=== PATIENT | male | born 1980 | race Caucasian/White ===

== ENCOUNTER 2016-12-25 12:03 | Emergency (ER) | payer OTHER ==
[2016-12-25 12:47] LABS: % IMMATURE GRANULYOCYTES 0.4 % (0.0-1.1); ABSOLUTE IMMATURE GRANULOCYTES 0.03 10^3/uL (0.00-0.10); ADD DIFF? NO; ADD MORPH? NO; ADD SCAN? NO; ATYPICAL LYMPHOCYTE FLAG 10 (0-99); FRAGMENT RBC FLAG 0 (0-99); HEMOGLOBIN 16.5 g/dL (13.7-17.5); LEFT SHIFT FLG 0 (0-99); LIPEMIA HEMOLYSIS FLAG 90 (0-99); MEAN CELL HEMOGLOBIN 31.3 pg (27.9-34.1); MEAN CELL HEMOGLOBIN CONCENTR. 34.4 g/dL (32.4-36.7); MEAN CELL VOLUME 91.1 fL (81.5-99.8); MEAN PLATELET VOLUME 9.6 fL (8.7-11.7); PLATELET CLUMPS FLAG 0 (0-99); PLATELET COUNT 352 10^3/uL (150-400); RED BLOOD CELL COUNT 5.27 10^6/uL (4.40-6.38); RED CELL DISTRIBUTION WIDTH 12.7 % (11.5-15.2)
[2016-12-25 13:21] LABS: ANION GAP 21 mEq/L (8-16); CALCIUM 10.8 mg/dL (8.5-10.4); CARBON DIOXIDE 19 mEq/l (22-31); CHLORIDE 106 mEq/L (97-110); GLOMERULAR FILTRATION RATE > 60; GLUCOSE 87 mg/dL (70-100); POTASSIUM 3.2 mEq/L (3.5-5.2); SODIUM 146 mEq/L (134-144)
--- NOTE | 2016-12-25 13:57 | EDPHY ---
H & P Stated Complaint: episode of hypoglycemia HPI/ROS: Chief complaint: Hypoglycemia History of present illness: This is a 28-year-old male with insulin-dependent diabetes who presents to the emergency department for low blood sugars. Patient was monitoring his blood sugar on his smart phone and it showed his sugars dropped into the 30s. He states he took his long-acting insulin as directed this morning and has maintained a normal morning routine of 2 soft drinks, so he is surprised his sugars dropped. He states he was feeling somewhat unwell without more specific complaints. On my evaluation he states he feels well without complaint. Review of systems: 10 point review of systems was obtained and other than described above was negative - Personal History Current Tetanus/Diphtheria Vaccine: Unsure Current Tetanus Diphtheria and Acellular Pertussis (TDAP): Unsure - Medical/Surgical History Hx Asthma: No Hx Chronic Respiratory Disease: No Hx Diabetes: No Hx Cardiac Disease: No Hx Renal Disease: No Hx Cirrhosis: No Hx Alcoholism: No Hx HIV/AIDS: No Hx Splenectomy or Spleen Trauma: No Other PMH: Dm TYPE 1 - Social History Smoking Status: Never smoked - Physical Exam Exam: General Appearance: Alert, nontoxic. Eyes: Pupils equal and round no injection. Respiratory: Chest is non tender, lungs are clear to auscultation. Cardiac: regular rate and rhythm Gastrointestinal: Abdomen is soft and non tender, no masses, bowel sounds normal. Musculoskeletal: Neck is supple and non tender. Extremities have full range of motion and are non tender. Skin: No rashes or lesions. Neurological: Alert and oriented x4. Cranial nerves 2-12 grossly intact. Strength and sensation intact and symmetrical. Constitutional: Initial Vital Signs Temperature (C) 36.6 C 12/25/16 12:06 Heart Rate 102 H 12/25/16 12:06 Respiratory Rate 16 12/25/16 12:06 Blood Pressure 169/110 H 12/25/16 12:06 O2 Sat (%) 95 12/25/16 12:06 O2 Delivery Mode Room Air Allergies/Adverse Reactions: No Known Allergies Allergy (Unverified 06/18/09 15:14) Home Medications: Medication Instructions Recorded Lantus 06/18/09 novoLOG 06/18/09 Medical Decision Making ED Course/Re-evaluation: Patient is discussed with my secondary supervising physician Dr. Siva Dumont. Patient presents to the emergency department for an episode of low blood sugar this morning. He was using a smart phone application for monitoring. It sounds like he had minimal symptoms with it. On my evaluation he is nontoxic. Vital signs are stable. He has no symptoms. His blood sugars are within normal limits. He has eaten here in the emergency room. He is observed without any symptoms. He will be discharged, he has a friend with him. He is asked to closely monitor his sugars and follow up with his primary care doctor for recheck. Return precautions are given. Patient voiced understanding and agreement with plan. Differential Diagnosis: Included but not limited to malfunction of his device, taking insulin without proper food intake, over insulin administration - Data Points Laboratory Results: Laboratory Results 12/25/16 12:20 12/25/16 12:20 12/25/16 12/25/16 12:20 12:20 WBC 7.75 10^3/uL 10^3/uL (3.80-9.50) RBC 5.27 10^6/uL 10^6/uL (4.40-6.38) Hgb 16.5 g/dL g/dL (13.7-17.5) Hct 48.0 % % (40.0-51.0) MCV 91.1 fL fL (81.5-99.8) MCH 31.3 pg pg (27.9-34.1) MCHC 34.4 g/dL g/dL (32.4-36.7) RDW 12.7 % % (11.5-15.2) Plt Count 352 10^3/uL 10^3/uL (150-400) MPV 9.6 fL fL (8.7-11.7) Neut % (Auto) 30.7 % L % (39.3-74.2) Lymph % (Auto) 57.5 % H % (15.0-45.0) [place] % (Auto) 8.9 % % (4.5-13.0) Eos % (Auto) 1.7 % % (0.6-7.6) Baso % (Auto) 0.8 % % (0.3-1.7) Nucleat RBC Rel Count 0.0 % % (0.0-0.2) Absolute Neuts (auto) 2.38 10^3/uL 10^3/uL (1.70-6.50) Absolute Lymphs (auto) 4.46 10^3/uL H 10^3/uL (1.00-3.00) Absolute Monos (auto) 0.69 10^3/uL 10^3/uL (0.30-0.80) Absolute Eos (auto) 0.13 10^3/uL 10^3/uL (0.03-0.40) Absolute Basos (auto) 0.06 10^3/uL 10^3/uL (0.02-0.10) Absolute Nucleated RBC 0.00 10^3/uL 10^3/uL (0-0.01) Immature Gran % 0.4 % % (0.0-1.1) Immature Gran # 0.03 10^3/uL 10^3/uL (0.00-0.10) Sodium 146 mEq/L H mEq/L (134-144) Potassium 3.2 mEq/L L mEq/L (3.5-5.2) Chloride 106 mEq/L mEq/L (97-110) Carbon Dioxide 19 mEq/l L mEq/l (22-31) Anion Gap 21 mEq/L H mEq/L (8-16) BUN 9 mg/dL mg/dL (7-23) Creatinine 1.0 mg/dL mg/dL (0.7-1.3) Estimated GFR > 60 Glucose 87 mg/dL mg/dL (70-100) Calcium 10.8 mg/dL H mg/dL (8.5-10.4) Phosphorus 2.7 mg/dL mg/dL (2.5-4.5) Departure - Departure Disposition: Home, Routine, Self-Care Clinical Impression: Hypoglycemia Condition: Good Instructions: Hypoglycemia in a Person with Diabetes (ED) Additional Instructions: Follow-up with her primary care doctor tomorrow for recheck Insure your eating proper meals on a regular basis Monitor your sugars more closely than usual If symptoms worsen or new symptoms develop return to the emergency room for recheck Referrals: Cheyenne Nagel PA [Primary Care Provider] - As per Instructions
[2016-12-25 14:32] VITALS: BP 143/89; PULSE 99; RESP 18; TEMP 98.6; O2SAT 96
== END 2016-12-25 14:32 | disposition home or self-care (01) ==
DX: E10.641 Type 1 diabetes mellitus with hypoglycemia with coma (principal)